=== PATIENT | female | born 1975 | race Caucasian/White ===

== ENCOUNTER 2018-08-02 22:30 | Emergency (ER) | payer OTHER ==
[2018-08-02 22:40] VITALS: O2SAT 100
[2018-08-02 23:26] VITALS: BP 135/91; PULSE 81
--- NOTE | 2018-08-02 23:31 | ERPHSYRPT ---
- History of Present Illness Time Seen by Provider: 08/02/18 22:45 Source: patient Exam Limitations: clinical condition Patient Subjective Stated Complaint: pt is alert and oriented. pt is ambulatory. pt brought in by ambulance for anxiety. pt states she woke up feeling anxious, and "not right". pt states she felt SOB and as if her heart were racing. pt states she has felt over tired the past few days and has " wanted to do nothing but sleep" pt also states she has felt this way before when she had issue with her BP. pt breathing normally, no acute distress. resp rate of 16 and O2 at 100% on RA. Triage Nursing Assessment: see above Physician History: PATIENT WITH A HISTORY OF METHAMPHETAMINE ABUSE AWAKENED FROM SLEEP FEELING ANXIOUS, SHORTNESS OF BREATH, AND PALPITATIONS DENIES NUMBNESS IN LIPS, FINGER OR TOES. DENIES CHEST PAIN, FEVER, CHILLS OR COUGH. Timing/Duration: today Severity: moderate Modifying Factors: Improves With: nothing Associated Symptoms: shortness of breath, other (PALPITATIONS) Allergies/Adverse Reactions: No Known Drug Allergies Allergy (Unverified 05/11/16 21:18) Hx Tetanus, Diphtheria Vaccination/Date Given: No Hx Influenza Vaccination/Date Given: No Hx Pneumococcal Vaccination/Date Given: No Immunizations Up to Date: Yes - Review of Systems Constitutional: No Fever, No Chills Eyes: No Symptoms Ears, Nose, & Throat: No Symptoms Respiratory: No Cough, No Dyspnea Cardiac: Palpitations, No Chest Pain, No Edema, No Syncope Abdominal/Gastrointestinal: No Abdominal Pain, No Nausea, No Vomiting, No Diarrhea Genitourinary Symptoms: No Dysuria Musculoskeletal: No Back Pain, No Neck Pain Skin: No Rash Neurological: No Dizziness, No Focal Weakness, No Sensory Changes Psychological: Anxiety Endocrine: No Symptoms All Other Systems: Reviewed and Negative - Past Medical History Pertinent Past Medical History: Yes Neurological History: No Pertinent History ENT History: No Pertinent History Cardiac History: No Pertinent History Respiratory History: No Pertinent History Endocrine Medical History: No Pertinent History Musculoskeletal History: No Pertinent History GI Medical History: No Pertinent History History: No Pertinent History Psycho-Social History: Anxiety, Depression Female Reproductive Disorders: No Pertinent History - Past Surgical History Past Surgical History: No Neuro Surgical History: No Pertinent History Cardiac: No Pertinent History Respiratory: No Pertinent History Gastrointestinal: No Pertinent History Genitourinary: No Pertinent History Musculoskeletal: No Pertinent History Female Surgical History: No Pertinent History - Social History Smoking Status: Current every day smoker How long have you smoked: 20 years Exposure to second hand smoke: No Drug Use: marijuana, methamphetamines Patient Lives Alone: No - Female History Hx Now: No - Nursing Vital Signs Nursing Vital Signs: Initial Vital Signs Temperature 97.6 F 08/02/18 22:30 Pulse Rate 86 08/02/18 22:30 Respiratory Rate 18 08/02/18 22:30 Blood Pressure 142/102 08/02/18 22:30 O2 Sat by Pulse Oximetry 100 08/02/18 22:30 Pain Scale Pain Intensity 0 - Physical Exam General Appearance: no apparent distress, alert, other (APPEARS IN NO DISTRESS) Eye Exam: PERRL/EOMI, eyes nml inspection Ears, Nose, Throat Exam: normal ENT inspection Neck Exam: normal inspection, non-tender, supple, full range of motion Respiratory Exam: normal breath sounds, lungs clear, No respiratory distress Cardiovascular Exam: regular rate/rhythm Extremity Exam: normal inspection, normal range of motion, pelvis stable Neurologic Exam: alert, oriented x 3, cooperative, normal mood/affect, nml cerebellar function, nml station & gait, sensation nml, No motor deficits Skin Exam: normal color, warm, dry, No rash SpO2 Interpretation: normal SpO2: 100 Oxygen Delivery: Room Air - Course EKG Interpreted by Me: RATE, Sinus Rhythm, NORMAL AXIS (RATE 74) Ordered Tests: Active Orders 24 hr Category Date Time Status ACCUCHECK [Accucheck] STAT Care 08/02/18 23:06 Active - Progress Progress Note: 08/02/18 23:31 ACCUCHECK 84 Counseled pt/family regarding: diagnosis, need for follow-up - Departure Time of Disposition: 23:35 Departure Disposition: Home Clinical Impression: ANXIETY DISORDER Condition: Stable Critical Care Time: No Referrals: DOCTOR,NO FAMILY [Primary Care Provider] - Additional Instructions: FOLLOWUP WITH YOUR PRIMARY CARE PROVIDER FOR FOLLOWUP IN 1 WEEK.
== END 2018-08-02 23:40 | disposition home or self-care (01) ==
LOC: ED 22:30
DX: F41.9 Anxiety disorder, unspecified (principal)
CPT/HCPCS: 82962; 99283

== ENCOUNTER 2022-12-13 21:09 | Emergency (ER) | payer OTHER ==
[2022-12-13 22:37] LABS: Absolute Neutrophil Ct (ANC) 8.12 x10^3/uL (1.4-6.9); BASOPHIL % 0.7 % (0.0-0.4); Basophil (Absolute #) 0.07 x10^3/uL (0-0.4); Eosinophil % 2.4 % (0.00-5.0); Eosinophil (Absolute #) 0.24 x10^3/uL (0-0.5); Hemoglobin 13.8 g/dL (12.0-16.0); IMMATURE GRAN # 0.02 x10^3u/L (0.00-0.03); IMMATURE GRAN % 0.2 % (0.00-0.4); Lymphocyte (Absolute #) 1.08 x10^3/uL (1.0-4.6); Lymphocytes % 10.7 % (24.0-44.0); Mean Cell Volume 89.8 fL (78-100); Mean Corpuscular Hemoglobin 28.8 pg (26-32); Mean Corpuscular Hgb Concent. 32.1 g/dL (32-36); Mean Platelet Volume 8.4 fL (7.5-11.0); Monocytes % 5.9 % (0.0-12.0); Neutrophil % 80.1 % (36.0-66.0); Platelet Count 340 x10^3/uL (150-450); Red Blood Count 4.79 x10^6/uL (4.1-5.4); White Blood Count 10.1 x10^3/uL (4.0-10.5)
[2022-12-13 22:57] LABS: ALBUMIN 4.1 g/dL (3.5-5.0); ALKALINE PHOSPHATASE 63 U/L (38-126); BLOOD UREA NITROGEN 11 mg/dL (7-17); CHLORIDE 102 mmol/L (98-107); Carbon Dioxide 29 mmol/L (22-30); Creatinine 1 0.78 mg/dL (0.52-1.04); EST GLOMERULAR FILTRATION RATE > 60.0 ML/MIN; Glucose 137 mg/dL (74-106); SGOT/AST 26 U/L (14-36); SGPT/ALT 22 U/L (0-35); SODIUM 137 mmol/L (137-145); Total Protein 7.2 g/dL (6.3-8.2)
[2022-12-13 22:58] LABS: Potassium 4.1 mmol/L (3.5-5.1)
[2022-12-13 23:03] LABS: ANION GAP 10.1 MEQ/L (5-15)
[2022-12-13 23:52] LABS: Appearance Clear (Clear); Bacteria Rare /HPF (None Seen); Bilirubin Negative (Negative); Blood Negative (Negative); Epithelial Cells Moderate /HPF (None Seen); Glucose, Urine Negative (Negative); Hyaline Casts NONE SEEN /LPF (0-2); Ketones Trace (Negative); Leukocyte Esterase Trace (Negative); Nitrite Negative (Negative); Protein,Urine Dip Trace (Negative); RBC 0-2 /HPF (0-5); Specific Gravity 1.025 (1.005-1.030)
[2022-12-13 23:53] LABS: ADD URINE CULTURE? YES (NO)
[2022-12-14 00:04] LABS: Barbiturate,Urine NEGATIVE (NEGATIVE); Benzodiazepine,Urine NEGATIVE (NEGATIVE); Cocaine,Urine NEGATIVE (NEGATIVE); Methadone,Urine NEGATIVE (NEGATIVE); Opiate,Urine NEGATIVE (NEGATIVE); PCP,Urine NEGATIVE (NEGATIVE); THC,Urine POSITIVE (NEGATIVE)
--- NOTE | 2022-12-14 00:33 | ERPHSYRPT ---
- History of Present Illness Time Seen by Provider: 12/13/22 21:30 Source: patient Exam Limitations: no limitations Patient Subjective Stated Complaint: pt states she has had high blood pressure at home as high as 187 systolic and had some dizziness prior to calling for ems. states dizziness has resloved now Triage Nursing Assessment: pt alert and oriented, answers questions approp. pt arrive per ambulance and transfers to stretcher per self. bilat upper and lower ext strength equal and wnl. pupils equal and reactive. heart rate 84 sinus rhyt hm on monitor Physician History: Patient is a 47-year-old female presents for ED via EMS for evaluation of dizziness and high blood pressure. However dizziness resolved prior to arrival to our ED. No chest pain. No shortness of breath. No nausea vomiting or diaphoresis. EMS reports amphetamine use. Patient denies a history of the same. She states otherwise healthy. She voices no other complaints or concerns at this time. Portions of this note were created with voice recognition technology. There may be grammatical, spelling, punctuation or sound alike errors Timing/Duration: today Severity: moderate Modifying Factors: Improves With: nothing Associated Symptoms: other (Dizziness) Allergies/Adverse Reactions: No Known Drug Allergies Allergy (Unverified 05/11/16 21:18) Hx Tetanus, Diphtheria Vaccination/Date Given: Yes Hx Influenza Vaccination/Date Given: No Hx Pneumococcal Vaccination/Date Given: No Immunizations Up to Date: Yes Travel Risk - International Travel Have you traveled outside of the country in past 3 weeks: No - Coronavirus Screening Are you exhibiting any of the following symptoms?: No Close contact with a COVID-19 positive Pt in past 14-21 Days: No - Vaccine Status Have you recieved a Covid-19 vaccination: No - Review of Systems Constitutional: No Symptoms, No Fever, No Chills Eyes: No Symptoms Ears, Nose, & Throat: No Symptoms Respiratory: No Symptoms, No Cough, No Dyspnea Cardiac: No Symptoms, No Chest Pain, No Edema, No Syncope Abdominal/Gastrointestinal: No Symptoms, No Abdominal Pain, No Nausea, No Vomiting, No Diarrhea Genitourinary Symptoms: No Symptoms, No Dysuria Musculoskeletal: No Symptoms, No Back Pain, No Neck Pain Skin: No Symptoms, No Rash Neurological: No Symptoms, No Dizziness, No Focal Weakness, No Sensory Changes Psychological: No Symptoms Endocrine: No Symptoms Hematologic/Lymphatic: No Symptoms Immunological/Allergic: No Symptoms All Other Systems: Reviewed and Negative - Past Medical History Pertinent Past Medical History: Yes Neurological History: No Pertinent History ENT History: No Pertinent History Cardiac History: No Pertinent History Respiratory History: No Pertinent History Endocrine Medical History: No Pertinent History Musculoskeletal History: No Pertinent History GI Medical History: No Pertinent History History: No Pertinent History Psycho-Social History: Anxiety, Depression Female Reproductive Disorders: No Pertinent History - Past Surgical History Past Surgical History: Yes Neuro Surgical History: No Pertinent History Cardiac: No Pertinent History Respiratory: No Pertinent History Gastrointestinal: No Pertinent History Genitourinary: No Pertinent History Musculoskeletal: No Pertinent History Female Surgical History: No Pertinent History Other Surgical History: leep procedure 1997 - Social History Smoking Status: Current every day smoker How long have you smoked: 20+ years Exposure to second hand smoke: No Drug Use: marijuana, methamphetamines Patient Lives Alone: No - Female History Hx Last Menstrual Period: 1 month Hx Now: No - Nursing Vital Signs Nursing Vital Signs: Initial Vital Signs Temperature 97.6 F 12/13/22 21:16 Pulse Rate 73 12/13/22 21:16 Respiratory Rate 16 12/13/22 21:16 Blood Pressure 143/97 12/13/22 21:16 O2 Sat by Pulse Oximetry 96 12/13/22 21:16 Pain Scale Pain Intensity 0 - Physical Exam General Appearance: no apparent distress, alert Eye Exam: PERRL/EOMI, eyes nml inspection Ears, Nose, Throat Exam: normal ENT inspection, TMs normal, pharynx normal, moist mucous membranes Neck Exam: normal inspection, non-tender, supple, full range of motion Respiratory Exam: normal breath sounds, lungs clear, airway intact, No respirato ry distress Cardiovascular Exam: regular rate/rhythm, normal heart sounds, normal peripheral pulses Gastrointestinal/Abdomen Exam: soft, normal bowel sounds, No tenderness, No mass Back Exam: normal inspection, normal range of motion, No CVA tenderness, No vertebral tenderness Extremity Exam: normal inspection, normal range of motion, pelvis stable Neurologic Exam: alert, oriented x 3, cooperative, normal mood/affect, nml cerebellar function, nml station & gait, sensation nml, No motor deficits Skin Exam: normal color, warm, dry, No rash Lymphatic Exam: No adenopathy SpO2 Interpretation: normal SpO2: 96 O2 Delivery: Room Air - Course Nursing assessment & vital signs reviewed: Yes EKG Interpreted by Me: RATE (85), Sinus Rhythm, NORMAL AXIS, NORMAL INTERVALS Ordered Tests: Active Orders 24 hr Category Date Time Status Frame Coverer STAT Care 12/13/22 22:20 Active Clean Catch Urine Specimen STAT Care 12/13/22 23:25 Active EKG-ER Only STAT Care 12/13/22 22:19 Active IV Insertion STAT Care 12/13/22 22:19 Active Pulse Oximetry (ED) STAT Care 12/13/22 22:19 Active CBC W DIFF Stat Lab 12/13/22 22:30 Completed CMP Stat Lab 12/13/22 22:30 Completed CULTURE,URINE Stat Lab 12/13/22 23:24 Received TROPONIN Q4H Lab 12/13/22 22:30 Completed TROPONIN Q4H Lab 12/14/22 02:30 Ordered TROPONIN Q4H Lab 12/14/22 06:30 Ordered UA W/RFX UR CULTURE Stat Lab 12/13/22 23:24 Completed Urine Triage Profile Stat Lab 12/13/22 23:25 Received Medication Summary Discontinued Medications Generic Name Dose Route Start Last Admin Trade Name Freq PRN Reason Stop Dose Admin Nitrofurantoin Macrocrystals 100 mg 12/14/22 00:47 Nitrofurantoin Macro 100 Mg Capsule PO 12/14/22 00:48 STAT ONE Lab/Rad Data: Laboratory Result Diagrams 12/13/22 22:30 12/13/22 22:30 Laboratory Results 12/13/22 12/13/22 12/13/22 Range/Units 23:24 22:30 22:30 WBC (4.0-10.5) x10^3/uL RBC (4.1-5.4) x10^6/uL Hgb (12.0-16.0) g/dL Hct (35-47) % MCV (78-100) fL MCH (26-32) pg MCHC (32-36) g/dL RDW (11.5-14.0) % Plt Count (150-450) x10^3/uL MPV (7.5-11.0) fL Gran % (36.0-66.0) % Immature Gran % (Auto) (0.00-0.4) % Nucleat RBC Rel Count (0.00-0.1) % Eos # (Auto) (0-0.5) x10^3/uL Immature Gran # (Auto) (0.00-0.03) x10^3u/L Absolute Lymphs (auto) (1.0-4.6) x10^3/uL Absolute Monos (auto) (0.0-1.3) x10^3/uL Absolute Nucleated RBC (0.00-0.01) x10^3u/L Lymphocytes % (24.0-44.0) % Monocytes % (0.0-12.0) % Eosinophils % (0.00-5.0) % Basophils % (0.0-0.4) % Absolute Granulocytes (1.4-6.9) x10^3/uL Basophils # (0-0.4) x10^3/uL Sodium 137 (137-145) mmol/L Potassium 4.1 (3.5-5.1) mmol/L Chloride 102 (98-107) mmol/L Carbon Dioxide 29 (22-30) mmol/L Anion Gap 10.1 (5-15) MEQ/L BUN 11 (7-17) mg/dL Creatinine 0.78 (0.52-1.04) mg/dL Estimated GFR > 60.0 ML/MIN Glucose 137 H (74-106) mg/dL Calcium 9.0 (8.4-10.2) mg/dL Total Bilirubin 0.30 (0.2-1.3) mg/dL AST 26 (14-36) U/L ALT 22 (0-35) U/L Alkaline Phosphatase 63 (38-126) U/L Troponin I < 0.012 (0.000-0.034) ng/mL Serum Total Protein 7.2 (6.3-8.2) g/dL Albumin 4.1 (3.5-5.0) g/dL Urine Color Yellow (Yellow) Urine Appearance Clear (Clear) Urine pH 7.0 (4.6-8.0) Ur Specific [place] 1.025 (1.005-1.030) Urine Protein Trace A (Negative) Urine Glucose (UA) Negative (Negative) mg/dL Urine Ketones Trace A (Negative) Urine Blood Negative (Negative) Urine Nitrite Negative (Negative) Urine Bilirubin Negative (Negative) Urine Urobilinogen 1.0 A (0.2) mg/dL Ur Leukocyte Esterase Trace A (Negative) U Hyaline Cast (Auto) NONE SEEN (0-2) /LPF Urine Microscopic RBC 0-2 (0-5) /HPF Urine Microscopic WBC 11-20 A (0-5) /HPF Ur Epithelial Cells Moderate A (None Seen) /HPF Urine Bacteria Rare A (None Seen) /HPF Urine Culture Reflexed YES (NO) 12/13/22 Range/Units 22:30 WBC 10.1 (4.0-10.5) x10^3/uL RBC 4.79 (4.1-5.4) x10^6/uL Hgb 13.8 (12.0-16.0) g/dL Hct 43.0 (35-47) % MCV 89.8 (78-100) fL MCH 28.8 (26-32) pg MCHC 32.1 (32-36) g/dL RDW 14.0 (11.5-14.0) % Plt Count 340 (150-450) x10^3/uL MPV 8.4 (7.5-11.0) fL Gran % 80.1 H (36.0-66.0) % Immature Gran % (Auto) 0.2 (0.00-0.4) % Nucleat RBC Rel Count 0.0 (0.00-0.1) % Eos # (Auto) 0.24 (0-0.5) x10^3/uL Immature Gran # (Auto) 0.02 (0.00-0.03) x10^3u/L Absolute Lymphs (auto) 1.08 (1.0-4.6) x10^3/uL Absolute Monos (auto) 0.60 (0.0-1.3) x10^3/uL Absolute Nucleated RBC 0.00 (0.00-0.01) x10^3u/L Lymphocytes % 10.7 L (24.0-44.0) % Monocytes % 5.9 (0.0-12.0) % Eosinophils % 2.4 (0.00-5.0) % Basophils % 0.7 (0.0-0.4) % Absolute Granulocytes 8.12 H (1.4-6.9) x10^3/uL Basophils # 0.07 (0-0.4) x10^3/uL Sodium (137-145) mmol/L Potassium (3.5-5.1) mmol/L Chloride (98-107) mmol/L Carbon Dioxide (22-30) mmol/L Anion Gap (5-15) MEQ/L BUN (7-17) mg/dL Creatinine (0.52-1.04) mg/dL Estimated GFR ML/MIN Glucose (74-106) mg/dL Calcium (8.4-10.2) mg/dL Total Bilirubin (0.2-1.3) mg/dL AST (14-36) U/L ALT (0-35) U/L Alkaline Phosphatase (38-126) U/L Troponin I (0.000-0.034) ng/mL Serum Total Protein (6.3-8.2) g/dL Albumin (3.5-5.0) g/dL Urine Color (Yellow) Urine Appearance (Clear) Urine pH (4.6-8.0) Ur Specific [place] (1.005-1.030) Urine Protein (Negative) Urine Glucose (UA) (Negative) mg/dL Urine Ketones (Negative) Urine Blood (Negative) Urine Nitrite (Negative) Urine Bilirubin (Negative) Urine Urobilinogen (0.2) mg/dL Ur Leukocyte Esterase (Negative) U Hyaline Cast (Auto) (0-2) /LPF Urine Microscopic RBC (0-5) /HPF Urine Microscopic WBC (0-5) /HPF Ur Epithelial Cells (None Seen) /HPF Urine Bacteria (None Seen) /HPF Urine Culture Reflexed (NO) - Progress Progress: improved Progress Note: Patient is a 47-year-old female presents to our ED via EMS for evaluation of elevated blood pressure and dizziness. Upon arrival patient's dizziness had resolved. Blood pressure spontaneously normalized. Work-up reveals urinary tract infection. Urine tox rain reveals meth use. Patient admitted to meth use. However patient believes that her symptoms are not due to meth. Patient believes something is wrong but we are not finding it. I explained to patient that I can only go by the test that we performed. She may benefit from outpatient work-up. Patient states she does not have a doctor to follow-up with. Patient was provided the contact information to our service Dr. Reyes Bhakta. Mother at bedside. They voiced no other complaints or concerns at this time. Patient admitted for discharge. Portions of this note were created with voice recognition technology. There may be grammatical, spelling, punctuation or sound alike errors Complexity of problems addressed is acute uncomplicated. Complexity is therefore low. No critical care time. State COPA level and why or if critical. vitals, Significant ROS/PE findings, working diagnoses, Complexity of data reviewed and analyzed is moderate. Test ordered. Test analyzed and reviewed. Patient served as an independent historian however EMS and patient's mother also provided information. Mother currently at bedside. Risk of complication and or risk morbidity/mortality is moderate. Patient received Macrobid in our ED for urinary tract infection. A prescription for the same was forwarded to patient's pharmacy. Patient agrees to follow-up with Dr. Chambers within 48 hours for reevaluation. Mother at bedside. Patient will be going home with her mother. They voiced no other complaints or concerns. Portions of this note were created with voice recognition technology. There may be grammatical, spelling, punctuation or sound alike errors 12/14/22 00:51 Counseled pt/family regarding: lab results, diagnosis, need for follow-up - Departure Departure Disposition: Home Clinical Impression: UTI (urinary tract infection), Encounter for medical screening examination Condition: Stable Critical Care Time: No Referrals: DOCTOR,NO FAMILY [Primary Care Provider] - Follow up/PCP as directed DIEGO DENNEY [ACTIVE STAFF] - Follow up/PCP as directed Prescriptions: Nitrofurantoin Macro 100 mg [Macrobid 100MG Capsule] 100 mg PO BID 7 Days #14 cap
[2022-12-14] MEDS ORDERED: Macrobid 100MG Capsule PO ONE (00:47)
[2022-12-14] MEDS ORDERED: Macrobid 100MG Capsule ONE (00:52)
[2022-12-14 01:06] VITALS: BP 121/87; PULSE 74; O2SAT 97
[2022-12-14 01:59] LABS: Amphetamine,Urine POSITIVE (NEGATIVE)
== END 2022-12-14 01:04 | disposition home or self-care (01) ==
LOC: ED 21:09
DX: N39.0 Urinary tract infection, site not specified (principal); R42 Dizziness and giddiness; R03.0 Elevated blood-pressure reading, without diagnosis of hypertension; Z28.310 Unvaccinated for COVID-19; Z72.0 Tobacco use
CPT/HCPCS: 36000; 36415; 80053; 80307; 81001; 84484; 85025; 87086; 93005; 93041; 94760; 99284; A9270-GY